=== PATIENT | male | born 1965 | race Caucasian/White ===

== ENCOUNTER 2017-05-19 16:56 | Emergency (ER) | payer OTHER ==
[2017-05-19 17:05] VITALS: BP 152/69
--- NOTE | 2017-05-19 17:21 | UC ---
Respiratory Complaint HPI - HPI Summary HPI Summary: 51 yo male with cough/running nose and low grade temp x <48 hours some myalgias - History of Current Complaint Chief Complaint: UCGeneralIllness Stated Complaint: COUGH,ACHES Time Seen by Provider: 05/19/17 17:08 Hx Obtained From: Patient Onset/Duration: Gradual Onset, Lasting Hours Timing: Constant Severity Initially: Mild Severity Currently: Mild Pain Intensity: 4 Pain Scale Used: 0-10 Numeric Character: Cough: Nonproductive Aggravating Factors: Nothing Alleviating Factors: Nothing Associated Signs And Symptoms: Positive: URI - Allergies/Home Medications Allergies/Adverse Reactions: Allergies Allergy/AdvReac Type Severity Reaction Status Date / Time No Known Allergies Allergy Verified 05/19/17 17:06 Home Medications: Home Medications Aspirin [Aspirin 81 MG TAB] 81 mg PO DAILY 05/19/17 [History Confirmed 05/19/17] PMH/Surg Hx/FS Hx/Imm Hx Previously Healthy: Yes - Surgical History Surgical History: None - Family History Known Family History: Positive: Hypertension - Social History Alcohol Use: Occasionally Substance Use Type: None Smoking Status (MU): Never Smoked Tobacco Review of Systems Constitutional: Fever, Chills Skin: Negative Eyes: Negative ENT: Sinus Congestion Respiratory: Cough Cardiovascular: Negative Gastrointestinal: Negative Genitourinary: Negative Motor: Negative Neurovascular: Negative Musculoskeletal: Myalgia Neurological: Negative Psychological: Negative Is Patient Immunocompromised?: No All Other Systems Reviewed And Are Negative: Yes Physical Exam Triage Information Reviewed: Yes Appearance: Well-Appearing, No Pain Distress, Well-Nourished Vital Signs: Initial Vital Signs Temp 99.7 F 05/19/17 17:01 Pulse 86 05/19/17 17:01 Resp 18 05/19/17 17:01 BP 152/69 05/19/17 17:01 Pulse Ox 99 05/19/17 17:01 Vital Signs Reviewed: Yes Eyes: Positive: Conjunctiva Clear ENT: Positive: Hearing grossly normal, TMs normal, Uvula midline. Negative: Nasal congestion, Nasal drainage, Tonsillar swelling, Tonsillar exudate, Trismus , Muffled voice, Hoarse voice Neck: Positive: Supple, Nontender, No Lymphadenopathy Respiratory: Positive: Lungs clear, Normal breath sounds, No respiratory distress Cardiovascular: Positive: RRR, No Murmur Musculoskeletal: Positive: ROM Intact, No Edema Neurological: Positive: Alert Psychological Exam: Normal Skin Exam: Normal UC Diagnostic Evaluation - Laboratory Pertinent Lab Values Are: WNL Except: - influenza A (+) O2 Sat by Pulse Oximetry: 99 - normal/not hypoxic Respiratory Course/Dx - Differential Dx/Diagnosis Provider Diagnoses: influenza Discharge - Discharge Plan Condition: Stable Disposition: HOME Prescriptions: Oseltamivir CAP* [Tamiflu CAP*] 75 mg PO BID #10 cap Patient Education Materials: Influenza (ED) Referrals: Lowell Gomez MD [Primary Care Provider] - If Needed
== END 2017-05-19 17:35 | disposition home or self-care (01) ==
LOC: UCEAST 16:56
DX: J11.1 Influenza due to unidentified influenza virus with other respiratory manifestations (principal); Z79.82 Long term (current) use of aspirin
CPT/HCPCS: 87502; 99212; G0463

== ENCOUNTER 2019-07-16 14:17 | Emergency (ER) | payer OTHER ==
[2019-07-16] MEDS ORDERED: Ibuprofen TAB* 600 MG PO ONE (14:33)
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
[2019-07-16 15:57] VITALS: BP 118/73
== END 2019-07-16 15:56 | disposition home or self-care (01) ==
LOC: ED 14:17
DX: S70.12XA Contusion of left thigh, initial encounter (principal); W22.8XXA Striking against or struck by other objects, initial encounter; Y93.55 Activity, bike riding; Y92.9 Unspecified place or not applicable
CPT/HCPCS: 99281; A9270-GY